=== PATIENT | female | born 1950 | race Caucasian/White ===

== ENCOUNTER 2023-03-27 11:46 | Outpatient (CLI) | payer MEDICARE, SELFPAY ==
[2023-03-27 17:19] LABS: LDL Cholesterol Direct 102 mg/dL
[2023-03-27 17:38] LABS: Thyroid Stimulating Hormone < 0.015 uIU/mL (0.465-4.680)
[2023-03-27 17:50] LABS: Free T4 Free Thyroxine 2.85 ng/mL (0.78-2.19)
== END 2023-03-27 11:47 | disposition home or self-care (01) ==
LOC: ANHWCLAB 11:49
PROVIDERS: PCP Emergency Medicine; Visit Provider Internal Medicine Endocrinology, Diabetes & Metabolism
DX: E03.8 Other specified hypothyroidism (principal); E06.3 Autoimmune thyroiditis; M85.80 Other specified disorders of bone density and structure, unspecified site; E78.5 Hyperlipidemia, unspecified; R79.89 Other specified abnormal findings of blood chemistry
CPT/HCPCS: 36415; 82306; 83721; 84439; 84443